=== PATIENT | female | born 1955 ===

== ENCOUNTER 2021-05-27 16:41 | Emergency (ER) | payer OTHER ==
[~2021-05-27] VITALS: Ht 162.6 cm; Wt 81.6 kg
[2021-05-27 16:56] VITALS: BP 157/91
[2021-05-27] MEDS ORDERED: SODIUM CHLORIDE 0.9% 500 ML IVB ONE (17:00)
[2021-05-27 18:28] LABS: Basophils # (auto) 0.1 10 ^3/uL (0-0.2); Eosinophils # (auto) 0.2 10 ^3/uL (0-0.8); Monocytes # (auto) 0.5 10 ^3/uL (0-1.3); Nucleated Red Blood Cells % 0.1 %
[2021-05-27 18:30] LABS: Basophils % (auto) 1.4 % (0.0-2.0); Eosinophils % (auto) 3.7 % (0.0-7.0); Hemoglobin 13.8 g/dL (12.2-16.2); Lymphocytes # (auto) 2.4 10 ^3/uL (0.4-5.4); Lymphocytes % (auto) 38.4 % (10.0-50.0); Mean Corpuscular Hemoglobin 26.4 pg (28.0-32.0); Mean Corpuscular Volume 82.6 fL (80.0-100.0); Monocytes % (auto) 7.3 % (0.0-12.0); Neutrophils % (auto) 49.2 % (37.0-80.0); Red Blood Cells 5.21 10^6/uL (4.0-5.20); Red Cell Distribution Width 14.7 % (11.8-14.3); White Blood Cell 6.2 10^3/uL (4.4-10.8)
[2021-05-27 18:39] LABS: Acetaminophen < 2.0 ug/mL (10-30); Salicylate 1.8 mg/dL (2.8-20.0)
[2021-05-27 18:40] LABS: Albumin 3.2 g/dL (3.4-5.0); Calcium 8.2 mg/dL (8.5-10.1); Magnesium 3.1 mg/dL (1.6-2.6); Potassium 4.3 mmol/L (3.5-5.1)
[2021-05-27 18:45] LABS: BUN/Creatinine Ratio 15.7
[2021-05-27 18:46] LABS: Bilirubin, Total 0.3 mg/dL (0.2-1.0); Total Protein 6.3 g/dL (6.4-8.2)
== END 2021-05-27 21:03 | disposition left against medical advice (07) ==
LOC: EDBD 16:41 → ER 16:41
DX: T42.4X1A Poisoning by benzodiazepines, accidental (unintentional), initial encounter (principal); R45.851 Suicidal ideations; F32.9 Major depressive disorder, single episode, unspecified; F41.9 Anxiety disorder, unspecified
CPT/HCPCS: 36415; 71045; 80053; 80320; 80329; 83735; 85025; 93005